=== PATIENT | male | born 1995 | race Hispanic/Latino ===

== ENCOUNTER 2025-05-16 11:33 | Emergency (ER) | payer SELFPAY ==
[~2025-05-16] VITALS: Ht 175.3 cm; Wt 72.6 kg
--- NOTE | 2025-05-16 12:35 | ERN ---
General Chief Complaint: Skin Rash/Abscess Stated Complaint: RASH Time Seen by MD: 11:37 Time Seen by Midlevel: 11:37 Source: patient History of Present Illness Initial Comments Patient is a 29-year-old male presenting to the ER with redness and irritation to his right armpit area that started two weeks ago after he used a new deodorant Past Medical History Past Medical History: No Pertinent History Past Surgical History: None ROS Dictation CONSTITUTIONAL: Negative except for HPI HEAD/FACE: Negative except for HPI EENT: Negative except for HPI RESPIRATORY: Negative except for HPI GASTROINTESTINAL/ABDOMINAL: Negative except for HPI GENITOURINARY: Negative except for HPI MUSCULOSKELETAL: Negative except for HPI INTEGUMENTARY: Negative except for HPI NEUROLOGICAL/PSYCH: Negative except for HPI HEMATOLOGIC/LYMPHATIC: Negative except for HPI All Systems Negative, Except as noted above. 13 point review of systems assessed and all negative except for above. Physical Exam Physical Exam Dictation Vital Signs reviewed General Appearance: Alert, oriented x 3, no acute distress, well developed, nourished. Head and Face: non-traumatic. Eyes: PERRL, pink conjunctivas, eyelid no trauma, anterior chamber with arcus senilis. Ears: Pinnas intact and no signs of trauma or erythema ear canals clear and no discharge TM no erythema Nose: No discharge, no bleeding. Oropharynx: Mouth normal, tongue pink, pharynx clear,no erythema, tonsils no exudates, no abscesses noted, mucous membrane moist Neck: Supple, non-tender, no thyromegaly, no masses, no JVD, no bruits Breast:Deferred Chest:No tenderness, no crepitus, no paradoxical movement, no retractions Lungs:Clear, well-ventilated, symmetric, no rales, no wheezing, no rhonchi, no stridor, good breath sounds bilaterally Heart: Regular rate, regular rhythm, no murmur, no gallops Vascular: no peripheral edema, Abdomen: Soft, positive bowel sounds, nondistended, no guarding, nontender, no rebound, no masses no hepatomegaly, no splenomegaly, no Matthews's sign, no hernias. Rectal: Deferred Genital: Deferred Neurological: Normal speech, motor function intact, sensory function intact Musculoskeletal: Neck nontender, full range of motion, back nontender, full range of motion, Extremities: nontender, full range of motion Skin: There was an area of erythema with scaly lesions throughout the right armpit area consistent with contact dermatitis Lymphatic: Deferred MDM MDM: Differential diagnosis: Eczema, psoriasis, contact dermatitis There are no social concerns with this patient. Prescription drug management Prescriptions will include: Hydrocortisone Medical management and examination interpretation discussions were had by me with other qualified healthcare professionals as indicated for the patient's care. ED Course Vital Signs Date Time Temp Pulse Resp B/P (MAP) Pulse Ox O2 Delivery O2 Flow Rate FiO2 05/16/25 11:45 98.2 58 20 131/78 100 Room Air* 0 21 05/16/25 11:34 98.2 58 20 131/75 100 Room Air DX & DISP Disposition: Discharge Departure Impression: Primary Impression: Contact dermatitis and eczema Condition: Stable Scripts Hydrocortisone (Hydrocortisone 1% 28.35GM) 1 % Crm 1 APPL TP BID for 7 Days, #30 GM 0 Refills apply to affected area(s) Prov: NARAYAN GAYTAN PAC 05/16/25 Referrals: SELF,REFERRAL (PCP) VALENTINA ABEBE MD Time of Disposition: 12:34 I have reviewed the case, and I agree with, Diagnosis and Plan I performed the substantive portion of the visit. I have reviewed and personally made and approve the management plan that is documented in the note by myself or the ILYA. I acknowledge for responsibility for the patient's management plan. NARAYAN GAYTAN PAC May 16, 2025 12:35
[2025-05-16 12:42] VITALS: BP 124/72; PULSE 62; RESP 20; TEMP 98.2; O2SAT 100
== END 2025-05-16 12:42 | disposition home or self-care (01) ==
LOC: EDH 11:33
DX: L25.9 Unspecified contact dermatitis, unspecified cause (principal)
CPT/HCPCS: 99282